=== PATIENT | female | born 1960 | race Caucasian/White ===

== ENCOUNTER 2023-01-03 08:09 | Outpatient (OUT) | payer OTHER, SELFPAY ==
--- NOTE | 2023-01-03 | PCN_ITS ---
CARDIAC STRESS TEST Requesting Physician:? Procedure Date:? 01/03/2023 INDICATION:? Pre-op, dyspnea. METHODS:? After risks, benefits and alternatives were explained, written informed consent was obtained.? The patient was brought to the Stress Lab in a resting and fasting state.? She was connected to the appropriate hemodynamic and electrocardiographic monitoring. Lexiscan 0.4 mg was infused intravenously.? The patient was monitored for the standard duration and discharged in a stable state. There were no complications. FINDINGS HEMODYNAMICS: Resting heart rate was 65 beats per minute, increasing to a maximum of 93 beats per minute. Resting blood pressure was 107/72, decreasing to a minimum of 90/63. ELECTROCARDIOGRAPHY:? Resting EKG:? Sinus rhythm.? Normal EKG. During infusion and recovery:? No significant ST-T wave changes noted.? No significant arrhythmia seen.? FINAL IMPRESSIONS: 1.? No ischemic EKG changes seen on Lexiscan Pharmacological Stress Test. 2. ?Nuclear images are to be read, interpreted and reported in a separate dictation. [facility]
--- NOTE | 2023-01-03 08:30 | NM_ITS ---
Patient Name: JACKIE HERRERA MR#: [id number] : 1960 Exam Date: 01/03/2023 Ordering Doctor: MANNY FERNANDO CNP RADIOLOGY REPORT PROCEDURE: NM ALINA PERF SPECT REST STR COMPARISON: None. INDICATIONS: PRE SURGERY CARDIOVASCULAR EXAM TECHNIQUE: Exam Description: Stress/Rest one day protocol gated SPECT Rest Imagin.8 mCi Tc-99m Cardiolite IV on 01/03/2023 Stress Imaging 29.9 mCi Tc-99m Cardiolite IV on 01/03/2023 Exercise Protocol: 0.4 mg Lexiscan given IV Heart Rate (bpm): Rest: 65 Max: 93 PMHR: 58 Blood Pressure: Rest: 107/72 Max: 107/72 Symptoms: Rest and peak stress ECG findings were normal and the exercise portion of the study was normal per attending physician Dr. Sykes . For more details please see separate cardiac stress test report. FINDINGS: QUALITY OF STUDY: Excellent. PERFUSION DEFECT: None. LOCATION: N/A SIZE: N/A. SEVERITY: N/A. TYPE: N/A. WALL MOTION: Normal. LV SIZE: Normal. 104 mL. TID / TCD: None; 0.8 LVEF: Normal. Calculated EF 64%. SUMMARY: Myocardial perfusion imaging study is NORMAL. CONCLUSION: 1. Normal nuclear medicine myocardial perfusion scan. Dictated by: Brett Lemus M.D. on 01/04/2023 at 14:51 Approved by: Brett Lemus M.D. on 01/04/2023 at 14:53
[2023-01-03] MEDS: REGADENOSON 0.4 MG/5 ML SYRINGE IV (10:42)
== END 2023-01-03 08:10 | disposition home or self-care (01) ==
LOC: NM 08:14
PROVIDERS: PCP Family Medicine; Visit Provider Nurse Practitioner Family
DX: Z01.818 Encounter for other preprocedural examination (principal); R06.09 Other forms of dyspnea
CPT/HCPCS: 78452; 93017; A9500; J2785

== ENCOUNTER 2023-02-28 07:28 | Outpatient (RCR) | payer OTHER, SELFPAY ==
[2023-02-28 16:56] LABS: Bilirubin Urine NEGATIVE (NEGATIVE); Blood Urine NEGATIVE (NEGATIVE); Clarity Urine CLEAR (CLEAR); Color Urine LT. YELLOW (YELLOW); Glucose Urine UA NEGATIVE (NEGATIVE); Ketones Urine NEGATIVE (NEGATIVE); Leukocyte Esterase Urine NEGATIVE (NEGATIVE); Nitrite Urine NEGATIVE (NEGATIVE); Protein Urine NEGATIVE (NEG/TRACE); Specific Gravity Urine 1.015 (1.005-1.025); Urobilinogen Urine 0.2 EU/dL (0.2-1.0); pH Urine 6.5 (5.0-9.0)
[2023-02-28 16:58] LABS: Urine Microscopic Indicated NO
--- NOTE | 2023-03-01 07:41 | PC.NURSE ---
Patient is here for straight cath, completed cath with sterile technique. She tolerated procedure well and denies any complaints. She was discharged home via wheelchair.
== END 2023-03-07 23:59 | disposition home or self-care (01) ==
LOC: INF 07:28
PROVIDERS: PCP Family Medicine; Visit Provider Personal Emergency Response Attendant
DX: N30.01 Acute cystitis with hematuria (principal)
CPT/HCPCS: 51701; 81003